=== PATIENT | female | born 2000 | race Two or more races ===

== ENCOUNTER 2025-01-22 23:13 | Emergency (ER) | payer OTHER, SELFPAY ==
[2025-01-22 23:24] VITALS: BP 113/80; PULSE 75; RESP 16; TEMP 36.6; O2SAT 100; BMI 24.0
--- NOTE | 2025-01-22 23:28 | PC.NURSE ---
While triaging this patient, patient inquired how long the wait would be. Informed patient we can not guarantee wait times, dept is fairly busy, patient should expect to wait some time, perhaps an hour or two. Patient stated Oh i'm not waiting that long, I'm exhausted and have a baby at home, I'll see my doctor tomorrow. T/w informed patient we cannot make her stay, understood her frustration, apologized for delay. Patient proceeded to walk out of dept. pt escort Trista made aware.
== END 2025-01-22 23:39 | disposition left against medical advice (07) ==
LOC: HO.ED 23:37
PROVIDERS: Emergency Provider Emergency Medicine
DX: H92.02 Otalgia, left ear (principal); Z53.21 Procedure and treatment not carried out due to patient leaving prior to being seen by health care provider
CPT/HCPCS: 99281

== ENCOUNTER 2025-07-26 10:05 | Emergency (ER) | payer OTHER, MEDICAID, SELFPAY ==
--- NOTE | ~2025-07-26 | XR_ITS ---
EXAMINATION: XR CHEST 2 VIEWS HISTORY: cough COMPARISON: There are no prior studies available for comparison. FINDINGS: PA and lateral views of the chest are submitted. The lungs are expanded and clear. There is no pleural effusion, pneumothorax, or pulmonary vascular congestion. The heart is normal in size. The bones are intact. XR/XR chest 2V IMPRESSION: Normal examination of the chest. Electronically signed by: Odell Tierney MD 07/26/2025 10:59 AM [place]
[2025-07-26 10:12] VITALS: BP 120/80; PULSE 88; O2SAT 98
[2025-07-26 10:23] VITALS: BP 126/86; PULSE 94; RESP 16; TEMP 36.8; O2SAT 99; BMI 21.8
--- NOTE | 2025-07-26 10:23 | ED_ITS ---
HPI - URI/Sore Throat General Chief Complaint: General Medical Stated Complaint: general malaise, congestion, fever x1w Time Seen by Provider: 07/26/25 11:41 Source: patient, RN notes reviewed and old records reviewed Mode of arrival: ambulatory History of Present Illness ED Provider: Nayeli Hutchins PA-C HPI Narrative: 25-year-old female with no significant past medical history presenting to the ED complaining of fever, chills, congestion, myalgias, sore throat x1 week. Admits to dry cough x 1 day, and left ear pain x month (since October). Admits neighbor was positive for influenza. Denies CP/SOB, difficulty/inability to swallow Related Data Allergies Allergy/AdvReac Type Severity Reaction Status Date / Time No Known Allergies Allergy Verified 07/26/25 10:25 Review of Systems Review of Systems: Yes all other systems are reviewed and are negative Constitutional: Constitutional: Reports as per [facility] Past Medical History Attestation statement: The following information was validated with the patient. Source: old records reviewed Social History Social History Advance Directives: No Advance Directives Information Provided: Yes Physical Exam Vital Signs: Vital Signs: Last Vital Signs Temp 98.2 F 07/26/25 12:06 Pulse 94 07/26/25 12:06 Resp 16 07/26/25 12:06 BP 126/86 07/26/25 12:06 Pulse Ox 99 07/26/25 12:06 O2 Del Method Room Air 07/26/25 12:06 BMI result Body Mass Index 21.8 Const: General: cooperative, healthy appearing and no acute distress Orientation/consciousness: patient oriented x3 Limitations: no limitations HEENT: Head: Yes normal to inspection and Yes atraumatic Ears: hearing grossly normal bilaterally, external ears normal, TM's normal bilaterally and mastoids normal General nose exam: Normal external nose present Face and sinus: Yes normal facial exam Mouth: Normal oral and palatal mucosa present and no drooling Throat: Yes uvula midline, No peritonsillar mass, Yes posterior oropharynx abnormal (Mildly erythematous), No uvula laterally displaced and No uvular edema Eyes: General: appearance normal, both eyes and all related structures EOM: EOMs intact bilaterally Neck: Neck: Yes normal visual inspection and Yes no meningeal signs Resp: Effort & Inspection: normal respiratory effort and no respiratory distress Auscultation: clear to auscultation bilaterally, no crackles, no rhonchi and no wheezes Cardio: Rate: regular rate Heart sounds: S1 normal heart sound present and S2 normal heart sound present Skin: Rashes: no rashes Wounds: no wounds Neuro: General: patient oriented x3, tone normal and no meningeal signs Cranial nerves: Yes CN's II-XII intact bilaterally Gait exam (Neuro): Normal gait present Extrem: General: Yes normal to inspection Course Course Course Narrative: This is a Rapid Medical Exam performed in triage by Nayeli Hutchins PA-C. Full HPI, ROS and PE to be performed by primary ED provider. 25 yo F presenting to the ED c/o fever, congestion, cough, myalgias, sore throat x 1 week and left ear pain since October. + sick contact. Denies SOB/CP PE: NAD, nontoxic appearing, talking in complete sentences, TMs WNL, no erythema or effusion. Uvula midline. Tonsils with mild erythema Plan: Viral testing, rapid strep, CXR Medical Decision Making Medical Decision Making [facility] Narrative: 25-year-old female with no significant past medical history presenting to the ED complaining of fever, chills, congestion, myalgias, sore throat x1 week. Admits to dry cough x 1 day, and left ear pain x month (since October). On exam vital signs stable, NAD, nontoxic appearing, physical exam as noted above. Concern for viral illness vs pharyngitis. Lower suspicion for pneumonia at this time or ACS. No evidence of acute otitis media/externa, unlikely mastoiditis/chronic otitis externa. No evidence of LAPPING MACHINE OPERATOR/retropharyngeal abscess Plan: Viral testing, CXR, rapid strep Please refer to course for remaining clinical decision making, interpretation of labs/imaging results, and discussions with consultants and/or family members. Differential Diagnosis Differential Diagnoses: The differential diagnosis associated with the presentation includes As above Lab Data [facility] Lab Attestation statement: I reviewed the patient's lab results. Labs: Lab Results 07/26/25 Range/Units 10:36 Influenza Type A (PCR) POSITIVE A (Negative) Influenza Type B (PCR) NEGATIVE (Negative) RSV RNA Qual (PCR) NEGATIVE (Negative) SARS-CoV-2 RNA (RT-PCR) NEGATIVE (Negative) S. pyogenes GrpA DERICK Negative (Negative) Independent Interpretation I performed an independent interpretation of an: Plain X-Ray Radiology Impression Discussion of test interpretation with radiology: I have reviewed the radiologist's reading. External Record Review External record reviewed: Inpatient record, Office record, Outpatient record, Prior outpatient labs, Prior outpatient radiology, Primary care record and Outside ED record Tests considered The following testing was considered but not selected: As above Prescription Management I considered prescription management with: Pain Medication and Antibiotic Chronic Conditions Patient?s care impacted by: Other Social Determinants Patient?s care significantly limited by Social Determinants of Health including: Other Social Determinant of Health Discharge Plan Discharge Clinical Impression: Influenza A Patient Disposition: Home, Self-Care Instructions: Influenza (DC) Additional Instructions: You have the flu - you are contagious No antibiotics are indicated at this time Make sure you are staying hydrated. Drink plenty of fluids. Rest Alternate Tylenol and Motrin at home as needed for body aches and fever Follow-up with your doctor. If symptoms persist or worsen return to the emergency department *If you are a child & not tolerating liquid or urinating for more than 6 hours, or fevers are uncontrolled with medications at home, return to the emergency department* Referrals: Physician,Unknown J [Primary Care Provider, Medical] - 1 week Stand Alone Forms: Work/School Release Interventions: ED Discharge Assessment Last Done: 07/26/25 12:06 Discharge Date/Time: 07/26/25 12:07 Print Language: Irish
[2025-07-26 10:53] LABS: Strep A Nucleic Acid Negative (Negative)
[2025-07-26 11:24] LABS: Resp Syncy Virus RNA Qual PCR NEGATIVE (Negative); SARS COV2 PCR INHOUSE NEGATIVE (Negative)
[2025-07-26 12:06] VITALS: BP 126/86; PULSE 94; RESP 16; TEMP 36.8; O2SAT 99
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
== END 2025-07-26 12:07 | disposition home or self-care (01) ==
PROVIDERS: Physician Assistant; Emergency Provider Emergency Medicine Emergency Medical Services
DX: J10.1 Influenza due to other identified influenza virus with other respiratory manifestations (principal); Z03.818 Encounter for observation for suspected exposure to other biological agents ruled out
CPT/HCPCS: 71046; 87637; 87651; 99282; 99283

== ENCOUNTER → 2025-07-26 10:25 | Outpatient (BNV) | payer OTHER, MEDICAID, SELFPAY | PROVIDERS: Emergency Provider Emergency Medicine Emergency Medical Services; Visit Provider Radiology Diagnostic Radiology | DX: R05.9 Cough, unspecified (principal) | CPT/HCPCS: 71046 ==